=== PATIENT | female | born 1965 | race Caucasian/White ===

== ENCOUNTER 2016-07-09 02:55 | Emergency (ER) | payer OTHER ==
--- NOTE | 2016-07-09 02:58 | ED CARDIAC/CP/PALPITATIONS ---
History of Present Illness General Chief Complaint: Chest Pain Stated Complaint: CHEST PAIN Source: patient Exam Limitations: no limitations Vital Signs & Intake/Output Vital Signs & Intake/Output Vital Signs Date Time Temp Pulse Resp B/P Pulse O2 O2 Flow FiO2 Ox Delivery Rate 07/09 0556 63 18 123/77 97 Room Air 07/09 0317 100 Room Air 07/09 0308 95.0 54 32 170/97 100 Room Air Allergies Coded Allergies: No Known Allergies (07/09/16) Reconcile Medications Omeprazole Magnesium (Prilosec Otc) 20 MG TABLET. 1 TAB PO DAILY stomach burning Triage Nurses Notes Reviewed? yes Onset: Gradual Duration: hour(s): Timing: recent history Quality/Severity: moderate Location: central Radiation: left arm Activities at Onset: "we are eating chicken wings. I think I'm having food poisoning." Prior Chest Pain/Card Workup: patient had a similar episode which was noted to be due to food poisoning. HPI: 50-year-old woman in prior good health presents with chest pain for the past 2-3 hours. She notes that she ate chicken wings at approximately 8 PM. 2-3 hours later she developed chest pain, increased anxiety, hyperventilation, with the sensation in her left shoulder, "a tightness." "It felt like a big belly bomb that was going to explode.... I felt like the burning pain went up from my stomach into my chest." She notes no fever chills diarrhea. She does note nausea, "I feel nauseous, but I can't throw up." Past History Travel History Traveled to [place] past 21 day No Medical History Any Pertinent Medical History? see below for history Endocrine: hypothyroidism Surgical History Surgical History: none Family History Hx Contributory? No Review of Systems Review of Systems Constitutional: Reports: no symptoms. EENTM: Reports: no symptoms. Respiratory: Reports: no symptoms. Cardiovascular: Reports: no symptoms. GI: Reports: no symptoms. Genitourinary: Reports: no symptoms. Musculoskeletal: Reports: no symptoms. Skin: Reports: no symptoms. Neurological/Psychological: Reports: no symptoms. Hematologic/Endocrine: Reports: no symptoms. Immunologic/Allergic: Reports: no symptoms. All Other Systems: Reviewed and Negative Physical Exam Physical Exam General Appearance: well developed/nourished, anxious, moderate distress Head: atraumatic, normal appearance Eyes: Bilateral: normal appearance, PERRL, EOMI. Ears, Nose, Throat: normal pharynx, normal ENT inspection Neck: normal inspection, supple, full range of motion Respiratory: normal breath sounds, chest non-tender, no respiratory distress, quiet respiration, lungs clear Cardiovascular: regular rate/rhythm Gastrointestinal: normal bowel sounds, soft, non-tender, no organomegaly Back: normal inspection, normal range of motion Extremities: normal inspection, normal capillary refill, normal range of motion, no edema Neurologic/Psych: no motor/sensory deficits, awake, alert, oriented x 3 Skin: intact, normal color, warm/dry Core Measures ACS in differential dx? No Severe Sepsis Present: No Septic Shock Present: No Progress Differential Diagnosis: AMI, costochondritis, costochondritis versus panic versus food poisoning versus other Plan of Care: Orders Procedure Date/time Status TROPONIN LEVEL 07/09 544 Complete EKG 07/09 544 Active D-DIMER 07/09 0304 Complete TROPONIN LEVEL 07/09 257 Complete COMPREHENSIVE METABOLIC PANEL 07/09 257 Complete CBC WITHOUT DIFFERENTIAL 07/09 257 Complete EKG 07/09 257 Active Laboratory Tests 07/09/16 0555: Troponin I < 0.01 07/09/16 0310: Anion Gap 11, Estimated GFR 58 L, BUN/Creatinine Ratio 17.0, Glucose 143 H, Calcium 9.9, Total Bilirubin 0.5, AST 18, ALT 27, Alkaline Phosphatase 48, Troponin I < 0.01, Total Protein 6.9, Albumin 4.2, Globulin 2.7, Albumin/ Globulin Ratio 1.6, D-Dimer < 200, CBC w Diff NO MAN DIFF REQ, RBC 4.50, MCV 90.8, MCH 31.6 H, RDW 12.8, MPV 7.1 L, Gran % 74.7, Lymphocytes % 16.6 L, Monocytes % 5.6, Eosinophils % 2.6, Basophils % 0.5, Absolute Granulocytes 6.8 H, Absolute Lymphocytes 1.5, Absolute Monocytes 0.5, Absolute Eosinophils 0.2, Absolute Basophils 0, PUBS MCHC 34.8 Diagnostic Imaging: Viewed by Me: Radiology Read. Discussed w/RAD: Radiology Read. CXR Impression: no acute abnormality, no infiltrates, normal size heart, normal mediastinum Initial ED EKG: normal axis, normal intervals, normal p-waves, normal QRS complex, normal sinus rhythm Repeat EKG: unchanged Comments: PATIENT: HELENA JAIME PRESENT AGE: 50 PATIENT ACCOUNT NO: [id number] : 63 LOCATION: [facility] ORDERING PHYSICIAN: SAMANTHA LOYOLA MD SERVICE DATE: 07/09/16 EXAM TYPE: RAD - XRY-PORTABLE CHEST XRAY EXAMINATION: XR PORTABLE CHEST CLINICAL INFORMATION: Chest pain. COMPARISON: None TECHNIQUE: Portable AP portable view of the chest was obtained. 3:21 AM FINDINGS: Lung volume low. No pulmonary vascular congestion. No infiltrate or pleural effusion. Cardiac and mediastinal contours are normal. IMPRESSION: No acute abnormality of the chest. 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 <Electronically signed in Other Vendor System> SIGNED BY: TAJ NULL MD 07/09/16347 Departure Departure Disposition: HOME OR SELF CARE Condition: Stable Clinical Impression Primary Impression: Chest pain Secondary Impressions: Reflux esophagitis Departure Forms: Customer Survey General Discharge Information Prescriptions: Current Visit Scripts Omeprazole Magnesium (Prilosec Otc) 1 TAB PO DAILY #30 TAB Comments 07/09/16, 6:43am.... pt feeling well, asymptomatic after supportive medications upon arrival... trop neg x 2. ekg neg x 2. pt safe for discharge. pt to return if symptoms recur. Her symptoms are most consistent reflux type phenomena. Close follow up advised. Critical Care Note Critical Care Note Critical Care Time: non-applicable
[2016-07-09 03:20] LABS: ABSOLUTE BASOPHIL COUNT 0 /CUMM (0.0-0.2); ABSOLUTE EOSINOPHIL COUNT 0.2 /CUMM (0.0-0.7); ABSOLUTE GRANULOCYTE CT 6.8 /CUMM (1.4-6.5); ABSOLUTE LYMPH COUNT 1.5 /CUMM (1.2-3.4); ABSOLUTE MONOCYTE COUNT 0.5 /CUMM (0.10-0.60); BASOPHIL % 0.5 % (0.0-2.0); EOSINOPHIL % 2.6 % (0-5); GRANULOCYTE % 74.7 % (42.2-75.2); HEMATOCRIT 40.9 % (37-47); MEAN CORPUSCULAR HGB 31.6 PG (27.0-31.0); MEAN CORPUSCULAR HGB CONC 34.8 G/DL (33.0-37.0); MEAN CORPUSCULAR VOLUME 90.8 FL (81.0-99.0); MEAN PLATELET VOLUME 7.1 FL (7.4-10.4); PLATELET COUNT 251 /CUMM (130-400); RBC DISTRIBUTION WIDTH 12.8 % (11.5-14.5); WHITE BLOOD CELL COUNT 9.2 /CUMM (4.8-10.8)
--- NOTE | 2016-07-09 03:48 | RADIOLOGY REPORT ---
EXAMINATION: XR PORTABLE CHEST CLINICAL INFORMATION: Chest pain. COMPARISON: None TECHNIQUE: Portable AP portable view of the chest was obtained. 3:21 AM FINDINGS: Lung volume low. No pulmonary vascular congestion. No infiltrate or pleural effusion. Cardiac and mediastinal contours are normal. IMPRESSION: No acute abnormality of the chest.
[2016-07-09 05:56] VITALS: BP 123/77
[2016-07-09] MEDS ORDERED: PRILOSEC OTC20 M1 PO (06:42)
== END 2016-07-09 06:54 ==
LOC: ERH 02:55
PROVIDERS: Pediatrics
DX: R07.9 Chest pain, unspecified (principal); K21.9 Gastro-esophageal reflux disease without esophagitis
CPT/HCPCS: 93005; 93010; 96374; 96375; J1885; J2405